=== PATIENT | male | born 1985 | race Two or more races ===

== ENCOUNTER 2021-01-26 11:24 | Emergency (ER) | payer SELFPAY ==
[2021-01-26] VITALS (7 sets, daily range): BP systolic 117–126; BP diastolic 73–78; PULSE 90–103; RESP 18; TEMP 36.8; O2SAT 95–98; BMI 21.6
--- NOTE | 2021-01-26 11:34 | CT_ITS ---
WS: [id number] CT HEAD NONCONTRAST HISTORY: head injury TECHNIQUE: Contiguous axial imaging performed through the brain in 2.5 mm imaging. Bone and soft tiss ue windows. Sagittal and coronal reformats reviewed. All CT scans at [facility] use at le ast one of these dose optimization techniques: automated exposure control; mA and/or kV adjustment pe r patient size (includes targeted exams where dose is matched to clinical indication); or iterative r econstruction. DLP: 925.88 mGy.cm COMPARISON: None available. No acute intracranial hemorrhage, midline shift or mass effect. No atrophy or prior infarcts or herniation. Ventricles: Normal size with no hydrocephalus. Paranasal sinuses: As visualized are clear. Mastoid air cells: Well pneumatized. Calvarium and scalp: No skull fracture. Moderate size hematoma centered over the LEFT parietal bone. No underlying fracture identified. CT/CT head wo con* [id number] IMPRESSION: 1. No acute intracranial hemorrhage or edema. 2. No skull fracture. 3. Moderate LEFT parietal scalp hematoma.
--- NOTE | 2021-01-26 11:34 | CT_ITS ---
WS: [id number] CT CERVICAL SPINE HISTORY: Trauma TECHNIQUE: Contiguous 2.5 mm axial imaging performed through the entire cervical spine. Sagittal and coronal reformats also performed. All CT scans at [facility] use at least one of these do se optimization techniques: automated exposure control; mA and/or kV adjustment per patient size (inc ludes targeted exams where dose is matched to clinical indication); or iterative reconstruction. DLP: 479.43 mGy.cm COMPARISON: None available. Normal cervical alignment. Craniocervical junction, atlantodental interval and C1-C2 alignment is nor mal. C2-C3: Normal. C3-C4: Normal. C4-C5: Small central disc protrusion and RIGHT foraminal osteophyte. C5-C6: Normal. C6-C7: Moderate size central disc protrusion. C7-T1: Normal. Soft tissues are normal. Lung apices are clear. CT/CT cervical spin wo con* [id number] IMPRESSION: 1. No acute cervical spine fracture. 2. Disc protrusion centrally at C4-5 and C6-7.
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
[2021-01-26 11:53] LABS: Basophils # 0.1 10^3/uL (0.0-0.1); Basophils % 1.1 %; Eosinophils # 0.3 10^3/uL (0.0-0.8); Eosinophils % 2.2 %; Hematocrit 50.6 % (42.0-52.0); Hemoglobin 16.2 g/dL (11.7-16.6); Lymphocytes # 7.2 10^3/uL (0.8-4.8); Lymphocytes % 57.4 %; Mean Corpuscular Hemoglobin 30.8 pg (28.0-34.0); Mean Corpuscular Volume 96.2 fL (80-94); Mean Platelet Volume 11.4 fL (7.4-10.4); Monocytes % 7.8 %; Neutrophils % 31.1 %; Nucleated Red Blood Cells % 0 %; Platelet Count 241 10^3/cmm (130-400); Red Blood Count 5.26 10^6/uL (4.1-5.3); Red Cell Distribution Width 13.2 % (12.1-15.1); White Blood Count 12.6 10^3/uL (4.0-10.0)
[2021-01-26 12:14] LABS: Anion Gap 36.8 (5-19); Blood Urea Nitrogen 13 mg/dL (6-20); Calcium 8.9 mg/dL (8.5-10.5); Chloride 100 mmol/L (98-107); Glucose 114 mg/dL (65-115); Osmolality Calculated 295 mOsm/kg (285-295); Potassium 3.8 mmol/L (3.5-5.1); Sodium 142 mmol/L (136-145)
[2021-01-26 12:26] LABS: Carbon Dioxide 9 mmol/L (22-29)
[2021-01-26 16:46] LABS: SARS Covid-2 Antigen Negative (Negative)
== END 2021-01-26 17:10 | disposition short-term general hospital (02) ==
PROVIDERS: Emergency Provider Emergency Medicine; PCP Psychiatry & Neurology Neurology
DX: S06.0X9A Concussion with loss of consciousness of unspecified duration, initial encounter (principal); R56.1 Post traumatic seizures; Y04.2XXA Assault by strike against or bumped into by another person, initial encounter; Y92.143 Cell of prison as the place of occurrence of the external cause
CPT/HCPCS: 70450; 72125; 80048; 85025; 87426; 99285